=== PATIENT | female | born 2000 | race Two or more races ===

== ENCOUNTER 2022-01-07 10:20 | Observation (INO) | payer MEDICAID ==
[~2022-01-07] VITALS: Ht 167.6 cm; Wt 72.6 kg
== END 2022-01-07 18:03 | disposition home or self-care (01) ==
LOC: LDRP 10:20
PROVIDERS: ADMIT Obstetrics & Gynecology; ATTEND Obstetrics & Gynecology
DX: O48.0 Post-term pregnancy (principal); O26.893 Other specified pregnancy related conditions, third trimester; R10.30 Lower abdominal pain, unspecified; Z3A.40 40 weeks gestation of pregnancy
CPT/HCPCS: 59025; 76818; 81002; 94760; G0378

== ENCOUNTER 2022-01-09 10:34 | Observation (INO) | payer MEDICAID | END 2022-01-09 17:40 | disposition home or self-care (01) | LOC: LDRP 16:01 | PROVIDERS: ADMIT Obstetrics & Gynecology; ATTEND Obstetrics & Gynecology | DX: O48.0 Post-term pregnancy (principal); O62.9 Abnormality of forces of labor, unspecified; O26.893 Other specified pregnancy related conditions, third trimester; R11.0 Nausea; Z3A.40 40 weeks gestation of pregnancy | CPT/HCPCS: 59025; 76818; 81002; 94760; G0378 ==

== ENCOUNTER 2022-01-11 15:20 | Observation (INO) | payer MEDICAID ==
[~2022-01-11] VITALS: Ht 170.2 cm; Wt 72.6 kg
[2022-01-11] MEDS ORDERED: PREN1TAB71 OR (16:19)
== END 2022-01-11 16:44 | disposition home or self-care (01) ==
LOC: LDRP 15:20
PROVIDERS: ADMIT Obstetrics & Gynecology; ATTEND Obstetrics & Gynecology
DX: O48.0 Post-term pregnancy (principal); O62.9 Abnormality of forces of labor, unspecified; Z3A.40 40 weeks gestation of pregnancy
CPT/HCPCS: 59025; 76818; 81002; 94760; G0378

== ENCOUNTER 2022-01-13 08:21 | Observation (INO) | payer MEDICAID ==
[~2022-01-13 08:21] MED LIST: PREN1TAB71 OR
== END 2022-01-13 17:07 | disposition home or self-care (01) ==
LOC: UNDOADMOB 15:28 → LDRP 15:28
PROVIDERS: ADMIT Obstetrics & Gynecology; ATTEND Obstetrics & Gynecology
DX: O48.0 Post-term pregnancy (principal); O62.9 Abnormality of forces of labor, unspecified; O99.323 Drug use complicating pregnancy, third trimester; F12.90 Cannabis use, unspecified, uncomplicated; Z3A.40 40 weeks gestation of pregnancy
CPT/HCPCS: 59025; 76818; 81002; 94760; G0378

== ENCOUNTER 2022-01-14 08:08 | Observation (INO) | payer MEDICAID | END 2022-01-14 12:00 | disposition home or self-care (01) | LOC: LDRP 08:08 → UNDOADMOB 08:08 → LDRP 08:12 → UNDODISOB 12:00 | PROVIDERS: ADMIT Obstetrics & Gynecology; ATTEND Obstetrics & Gynecology | DX: O62.9 Abnormality of forces of labor, unspecified (principal); O99.323 Drug use complicating pregnancy, third trimester; F12.90 Cannabis use, unspecified, uncomplicated; Z3A.41 41 weeks gestation of pregnancy | CPT/HCPCS: 59025; 81002; G0378 ==

== ENCOUNTER 2022-01-15 08:14 | Inpatient (IN) | payer MEDICAID ==
[~2022-01-15] VITALS: Ht 170.2 cm; Wt 59.0 kg
[2022-01-15] MEDS ORDERED: LIDOCAINE 2%HCL (LOCAL ANESTH.) INJ 10ml MDV IJ PRN (09:00)
[2022-01-15] MEDS ORDERED: PHISODERM TOP SOLN 240ML BTL TOP PRN (09:00)
[2022-01-15] MEDS ORDERED: DERMOPLAST 60ML BOTTLE TOP PRN (09:00)
[2022-01-15] MEDS ORDERED: BUTORPHANOL TARTRATE 2 MG/1 ML VIAL IV PRN (09:00)
[2022-01-15] MEDS ORDERED: PROMETHAZINE HCL 25 MG/ML 1ML IV PRN (09:00)
[2022-01-15] MEDS ORDERED: WITCH HAZEL-GLYCERIN PAD TOP PRN (09:00)
[2022-01-15] MEDS: LACTATED RINGER'S 1,000 ML IV SCH ×2 (09:32→10:17)
[2022-01-15 09:41] LABS: Albumin 2.4 g/dL (3.4-5.0); Calcium 8.4 mg/dL (8.5-10.1); INR 0.87 (0.9-1.15); Partial Thromboplastin Time < 20.0 sec (24.6-33.4); Potassium 4.7 mmol/L (3.5-5.1)
[2022-01-15 09:43] LABS: Alcohol, Urine < 3.0 mg/dL (0-10); Amphetamine Screen, Urine NEGATIVE (NEGATIVE); Barbiturate Scree,Urine NEGATIVE (NEGATIVE); Benzodiazephine Screen, Urine NEGATIVE (NEGATIVE); Cannabinoid Screen, Urine NEGATIVE (NEGATIVE); Cocaine Screen, Urine NEGATIVE (NEGATIVE); Opiate Scree,Urine NEGATIVE (NEGATIVE); Phencyclidine Screen, Urine NEGATIVE (NEGATIVE)
[2022-01-15 09:45] LABS: BUN/Creatinine Ratio 15.7; Bilirubin, Total 0.5 mg/dL (0.2-1.0); Total Protein 6.9 g/dL (6.4-8.2)
[2022-01-15 09:50] LABS: Basophils # (auto) 0.1 10 ^3/uL (0-0.2); Basophils % (auto) 0.4 % (0.0-2.0); Eosinophils # (auto) 0.1 10 ^3/uL (0-0.8); Eosinophils % (auto) 0.3 % (0.0-7.0); Hematocrit 38.2 % (36.0-46.0); Hemoglobin 12.4 g/dL (12.2-16.2); Lymphocytes # (auto) 1.9 10 ^3/uL (0.4-5.4); Lymphocytes % (auto) 10.2 % (10.0-50.0); Mean Corpuscular Hemoglobin 28.7 pg (28.0-32.0); Mean Corpuscular Hgb Conc. 32.5 g/dL (32.0-36.0); Mean Corpuscular Volume 88.3 fL (80.0-100.0); Monocytes # (auto) 0.9 10 ^3/uL (0-1.3); Monocytes % (auto) 4.8 % (0.0-12.0); Neutrophils # (auto) 15.7 10 ^3/uL (1.6-8.6); Neutrophils % (auto) 84.3 % (37.0-80.0); Nucleated Red Blood Cells % 0.1 %; Red Blood Cells 4.33 10^6/uL (4.0-5.20); Red Cell Distribution Width 13.4 % (11.8-14.3); White Blood Cell 18.6 10^3/uL (4.4-10.8)
[2022-01-15 09:52] LABS: Urine Amorphous Crystal FEW /hpf (None Seen); Urine Bacteria MANY /hpf (None Seen); Urine Blood 3+ /uL (Negative); Urine Specific Gravity 1.012 (1.001-1.035); Urine WBC 261 /hpf (0 - 5); Urine WBC Clumps PRESENT /hpf (None Seen)
[2022-01-15] MEDS ORDERED: NS/OXYTOCIN 20UNITS 500 ML IV ONE ×2 (12:45→13:15)
[2022-01-15] MEDS ORDERED: ceFAZolin 1GM/50ML 50 ML IV SCH (15:00)
[2022-01-15] MEDS ORDERED: ONDANSETRON ODT 4 MG TAB PO PRN (19:00)
[2022-01-15] MEDS ORDERED: ACETAMINOPHEN 325 MG TAB PO PRN (19:00)
[2022-01-15] MEDS: IBUPROFEN 600 MG TAB PO PRN (19:28)
[2022-01-15] MEDS ORDERED: DOCUSATE SOD 100 MG CAP PO SCH (22:00)
[2022-01-15 23:00] VITALS: BP 121/72
[2022-01-16 03:00] VITALS: BP 119/74
[2022-01-16 07:00] VITALS: BP 123/81
[2022-01-16 07:07] LABS: RPR Non Reactive (Non Reactive)
[2022-01-16 11:00] VITALS: BP 101/61
[2022-01-16 15:00] VITALS: BP 111/59
[2022-01-16] MEDS: IBUPROFEN 600 MG TAB PO PRN (17:59)
[2022-01-16 19:00] VITALS: BP 93/52
[2022-01-16 23:00] VITALS: BP 106/58
[2022-01-17 03:00] VITALS: BP 110/67
[2022-01-17 07:00] VITALS: BP 101/61
[2022-01-17 11:00] VITALS: BP 118/68
[2022-01-17 15:00] VITALS: BP 120/70
[2022-01-17 18:30] VITALS: BP 120/70
== END 2022-01-17 23:00 | disposition home or self-care (01) | DRG 560 ==
LOC: LDRP 08:14 → OBSVTOIN 08:40
PROVIDERS: ADMIT Obstetrics & Gynecology; ATTEND Obstetrics & Gynecology
PROC: 10E0XZZ Delivery of Products of Conception, External Approach (ICD-10-PCS; principal; 2022-01-15)
PROC: 0UQJXZZ Repair Clitoris, External Approach (ICD-10-PCS; 2022-01-15)
PROC: 0UQMXZZ Repair Vulva, External Approach (ICD-10-PCS; 2022-01-15)
DX: O70.0 First degree perineal laceration during delivery (principal); Z37.0 Single live birth; O71.89 Other specified obstetric trauma; Z20.822 Contact with and (suspected) exposure to COVID-19; Z3A.41 41 weeks gestation of pregnancy
CPT/HCPCS: 36415; 59025; 59409; 80053; 80307; 81001; 81002; 85025; 85610; 85730; 86592; 86850; 86900; 86901; 94760; 94762; 96360; 96361; 96365; 96366; G0378; J0690; J2001

== ENCOUNTER 2023-05-25 18:26 | Emergency (ER) | payer MEDICAID ==
[~2023-05-25] VITALS: Ht 165.1 cm; Wt 66.2 kg
[2023-05-25 19:43] LABS: Basophils # (auto) 0 10 ^3/uL (0-0.2); Basophils % (auto) 0.2 % (0.0-2.0); Eosinophils # (auto) 0.2 10 ^3/uL (0-0.8); Eosinophils % (auto) 1.8 % (0.0-7.0); Hematocrit 33.6 % (36.0-46.0); Hemoglobin 11.3 g/dL (12.2-16.2); Lymphocytes % (auto) 20.3 % (10.0-50.0); Mean Corpuscular Hemoglobin 29.4 pg (28.0-32.0); Mean Corpuscular Hgb Conc. 33.5 g/dL (32.0-36.0); Mean Corpuscular Volume 87.7 fL (80.0-100.0); Monocytes # (auto) 0.9 10 ^3/uL (0-1.3); Monocytes % (auto) 9.5 % (0.0-12.0); Neutrophils # (auto) 6.6 10 ^3/uL (1.6-8.6); Neutrophils % (auto) 68.2 % (37.0-80.0); Nucleated Red Blood Cells % 0.1 %; Red Blood Cells 3.83 10^6/uL (4.0-5.20); Red Cell Distribution Width 13.3 % (11.8-14.3); White Blood Cell 9.6 10^3/uL (4.4-10.8)
[2023-05-25 19:50] LABS: Urine Bacteria NONE SEEN /hpf (None Seen); Urine Blood Negative /uL (Negative); Urine Clarity Clear (Clear); Urine Protein, UAD Negative (Negative); Urine Specific Gravity 1.002 (1.001-1.035); Urine Urobilinogen Normal (Negative); Urine WBC <1 /hpf (0 - 5); Urine pH 6.5 (5.0-8.0)
[2023-05-25 20:00] LABS: Urine Color STRAW (Yellow)
[2023-05-25 22:03] VITALS: BP 100/50; PULSE 106; RESP 17; TEMP 98.7; O2SAT 98
== END 2023-05-25 22:10 | disposition home or self-care (01) ==
LOC: ER 18:26
DX: O20.0 Threatened abortion (principal); Z79.899 Other long term (current) drug therapy; Z3A.16 16 weeks gestation of pregnancy
CPT/HCPCS: 36415; 76805; 81001; 84702; 85025

== ENCOUNTER → 2023-10-14 | Outpatient (CLI) | payer MEDICAID ==
[2023-10-14 12:35] LABS: Basophils # (auto) 0 10 ^3/uL (0-0.2); Basophils % (auto) 0.4 % (0.0-2.0); Eosinophils # (auto) 0.4 10 ^3/uL (0-0.8); Eosinophils % (auto) 4.3 % (0.0-7.0); Hematocrit 37.3 % (36.0-46.0); Hemoglobin 12.6 g/dL (12.2-16.2); Lymphocytes # (auto) 1.8 10 ^3/uL (0.4-5.4); Lymphocytes % (auto) 17.6 % (10.0-50.0); Mean Corpuscular Hemoglobin 30.4 pg (28.0-32.0); Mean Corpuscular Hgb Conc. 33.8 g/dL (32.0-36.0); Monocytes # (auto) 0.6 10 ^3/uL (0-1.3); Monocytes % (auto) 6.1 % (0.0-12.0); Neutrophils # (auto) 7.3 10 ^3/uL (1.6-8.6); Neutrophils % (auto) 71.6 % (37.0-80.0); Red Blood Cells 4.14 10^6/uL (4.0-5.20); Red Cell Distribution Width 13.6 % (11.8-14.3); White Blood Cell 10.2 10^3/uL (4.4-10.8)
[2023-10-15 07:06] LABS: RPR Non Reactive (Non Reactive)
[2023-10-15 15:06] LABS: Chlamydia Trachomatis, NAA Negative (Negative); Neisseria gonorrhoeae, NAA Negative (Negative)
== END | disposition home or self-care (01) ==
LOC: LAB 12:02
PROVIDERS: ATTEND Obstetrics & Gynecology
DX: Z34.80 Encounter for supervision of other normal pregnancy, unspecified trimester (principal); Z3A.00 Weeks of gestation of pregnancy not specified
CPT/HCPCS: 36415; 85025; 86592

== ENCOUNTER 2023-11-07 09:00 | Observation (INO) | payer MEDICAID | END 2023-11-07 12:10 | disposition home or self-care (01) | LOC: UNDOADMOB 09:00 → LDRP 09:00 | PROVIDERS: ADMIT Obstetrics & Gynecology; ATTEND Obstetrics & Gynecology | DX: O48.0 Post-term pregnancy (principal); O21.2 Late vomiting of pregnancy; O26.893 Other specified pregnancy related conditions, third trimester; N89.8 Other specified noninflammatory disorders of vagina; Z3A.40 40 weeks gestation of pregnancy | CPT/HCPCS: 59025; 76818; 81002; 94760; G0378 ==

== ENCOUNTER 2023-11-08 02:17 | Inpatient (IN) | payer MEDICAID ==
[2023-11-08] MEDS ORDERED: miSOPROStol 50 MCG per PRE-CUT 1/2 TAB PO PRN (03:00)
[2023-11-08] MEDS ORDERED: BUTORPHANOL TARTRATE 2 MG/1 ML VIAL IV PRN ×2 (03:00)
[2023-11-08] MEDS: LACTATED RINGER'S 1,000 ML IV SCH (03:32)
[2023-11-08 03:38] LABS: Urine Bacteria None Seen /hpf (None Seen)
[2023-11-08 03:38] LABS: Basophils # (auto) 0 10 ^3/uL (0-0.2); Basophils % (auto) 0.3 % (0.0-2.0); Eosinophils # (auto) 0.2 10 ^3/uL (0-0.8); Eosinophils % (auto) 1.2 % (0.0-7.0); Hematocrit 39.1 % (36.0-46.0); Hemoglobin 13.2 g/dL (12.2-16.2); Lymphocytes # (auto) 2.1 10 ^3/uL (0.4-5.4); Mean Corpuscular Hemoglobin 29.9 pg (28.0-32.0); Mean Corpuscular Hgb Conc. 33.9 g/dL (32.0-36.0); Mean Corpuscular Volume 88.3 fL (80.0-100.0); Monocytes # (auto) 0.7 10 ^3/uL (0-1.3); Monocytes % (auto) 4.3 % (0.0-12.0); Neutrophils # (auto) 13.1 10 ^3/uL (1.6-8.6); Neutrophils % (auto) 81.2 % (37.0-80.0); Red Blood Cells 4.43 10^6/uL (4.0-5.20); Red Cell Distribution Width 13.5 % (11.8-14.3); White Blood Cell 16.1 10^3/uL (4.4-10.8)
[2023-11-08 03:49] LABS: Urine Blood TRACE /uL (Negative); Urine Clarity Clear (Clear); Urine Color Light-Yellow (Yellow); Urine Protein, UAD TRACE (Negative); Urine Specific Gravity 1.023 (1.001-1.035); Urine Urobilinogen Normal (Negative); Urine pH 6.5 (5.0-9.0)
[2023-11-08 03:57] LABS: Albumin 3.6 g/dL (3.2-4.8); Alkaline Phosphatase 124 U/L (46-116); Anion Gap 8 (5-15); Aspartate Aminotransferase 17 U/L (13-40); BUN/Creatinine Ratio 13.5 (10.0-20.0); Bilirubin, Total 0.4 mg/dL (0.2-1.0); Blood Urea Nitrogen 10 mg/dL (9-23); Calcium 9.2 mg/dL (8.7-10.4); Carbon Dioxide 22 mmol/L (20-30); Chloride 107 mmol/L (98-107); Glucose 95 mg/dL (74-106); Potassium 3.8 mmol/L (3.5-5.1); Sodium 137 mmol/L (136-145); Total Protein 6.4 g/dL (5.7-8.2); Uric Acid 6.4 mg/dL (3.1-7.8)
[2023-11-08 04:05] LABS: Amphetamine Screen, Urine Neg (NEGATIVE); Barbiturate Scree,Urine Neg (NEGATIVE); Benzodiazephine Screen, Urine Neg (NEGATIVE); Cannabinoid Screen, Urine Neg (NEGATIVE); Cocaine Screen, Urine Neg (NEGATIVE); Opiate Scree,Urine Neg (NEGATIVE); Phencyclidine Screen, Urine Neg (NEGATIVE)
[2023-11-08 04:14] LABS: Alanine Aminotransferase < 9 U/L (7-40)
[2023-11-08 04:19] LABS: Urine Blood TRACE /uL (Negative); Urine Clarity Clear (Clear); Urine Color Light-Yellow (Yellow); Urine Protein, UAD TRACE (Negative); Urine Specific Gravity 1.023 (1.001-1.035); Urine Urobilinogen Normal (Negative); Urine WBC 6 /hpf (0 - 5); Urine pH 6.5 (5.0-9.0)
[2023-11-08 04:38] LABS: INR 0.93 (0.9-1.15); Partial Thromboplastin Time 26.2 SEC (24.5-34.5); Prothrombin Time 9.9 sec (9.3-11.8)
[2023-11-08] MEDS ORDERED: miSOPROStol 100 mcg TAB PR PRN (05:45)
[2023-11-08] MEDS ORDERED: CARBOPROST TROMETHAMINE 250 MCG/1ML VIAL IM PRN (05:45)
[2023-11-08] MEDS ORDERED: miSOPROStol 100 mcg TAB SL PRN (05:45)
[2023-11-08] MEDS ORDERED: METHYLERGONOVINE MALEATE 0.2 MG/ML AMP IM PRN ×2 (05:45→06:45)
[2023-11-08] MEDS: fentaNYL CITRATE 100 MCG/2 ML VL IV STA (06:38)
[2023-11-08] MEDS: LIDOCAINE 2%HCL (LOCAL ANESTH.) INJ 20ML MDV ONE (08:29)
[2023-11-08] MEDS: LACT. RINGERS/OXYTOCIN 20UNITS 1,000 ML IV ONE (08:32)
[2023-11-08] MEDS: DERMOPLAST 60ML BOTTLE TOP PRN (08:33)
[2023-11-08] MEDS: WITCH HAZEL-GLYCERIN PAD TOP PRN (08:34)
[2023-11-08] MEDS: PHISODERM TOP SOLN 240ML BTL TOP PRN (08:34)
[2023-11-08] MEDS: ONDANSETRON ODT 4 MG TAB PO PRN (09:14)
[2023-11-08] MEDS ORDERED: DIPHENOXYLATE W/ATROPINE 2.5 MG TAB PO SCH (10:00)
[2023-11-08] MEDS: ACETAMINOPHEN 325 MG TAB PO PRN (10:52)
[2023-11-08 15:30] VITALS: BP 116/70; PULSE 77; TEMP 99; O2SAT 98
[2023-11-08 18:35] VITALS: BP 95/54; PULSE 89; RESP 20; TEMP 98.5; O2SAT 96
[2023-11-08 18:45] VITALS: RESP 20
[2023-11-08] MEDS: IBUPROFEN 600 MG TAB PO PRN (20:45)
[2023-11-08] MEDS: DOCUSATE SOD 100 MG CAP PO SCH (21:32)
[2023-11-08 23:00] VITALS: BP 108/59; PULSE 74; RESP 14; TEMP 98.3; O2SAT 95
[2023-11-09 03:15] VITALS: BP 108/67; PULSE 74; RESP 12; TEMP 98.3; O2SAT 96
[2023-11-09 07:20] VITALS: BP 102/60; PULSE 70; RESP 18; TEMP 97.9; O2SAT 97
[2023-11-10 07:08] LABS: Rubella Antibodies, IgG 2.77 index (Immune >0.99)
[2023-11-10 10:07] LABS: RPR Non Reactive (Non Reactive)
== END 2023-11-09 09:34 | disposition home or self-care (01) | DRG 560 ==
LOC: LDRP 02:17 → OBSVTOIN 03:05
PROVIDERS: ADMIT Obstetrics & Gynecology; ATTEND Obstetrics & Gynecology
PROC: 10E0XZZ Delivery of Products of Conception, External Approach (ICD-10-PCS; principal; 2023-11-08)
PROC: 0HQ9XZZ Repair Perineum Skin, External Approach (ICD-10-PCS; 2023-11-08)
DX: O48.0 Post-term pregnancy (principal); Z37.0 Single live birth; O70.9 Perineal laceration during delivery, unspecified; Z3A.40 40 weeks gestation of pregnancy
CPT/HCPCS: 36415; 59025; 59409; 80053; 80307; 81001; 81002; 81003; 84550; 85025; 85384; 85610; 85730; 86592; 86703; 86762; 86850; 86900; 86901; 87340; 94760; 96361; 96365; 96366; G0378; J2590; Q0162